=== PATIENT | male | born 1975 | race Two or more races ===

== ENCOUNTER 2020-11-06 07:51 | Inpatient (IN) | payer OTHER ==
[~2020-11-06] VITALS: Ht 167.6 cm; Wt 87.5 kg
--- NOTE | 2020-11-06 07:51 | NUR ---
PT BIBRA FROM HOME C/O NAUSEA/VOMITING AND BLACK TARRY STOOL FOR 2 DAYS. PT IS AAOX4, NOT IN RESPIRATORY DISTRESS, HOOKED TO TAPE CALENDER, KEPT RESTED AND COMFORTABLE. WILL CONTINUE TO MONITOR.
--- NOTE | 2020-11-06 08:03 | NUR ---
SEEN AND EXAMINED BY .
--- NOTE | 2020-11-06 08:05 | NUR ---
IV LINE ESTABLISHED BLOOD DRAWN AND SENT TO LAB.
[2020-11-06] MEDS ORDERED: FAMOTIDINE/PF INJ 20 MG/2 ML VIAL IV ONE (08:07)
[2020-11-06] MEDS ORDERED: ONDANSETRON HCL/PF 4 MG/2 ML VIAL ONE (08:07)
[2020-11-06 08:19] LABS: BASOPHILS # (AUTO) 0.1 /CMM (0.0-0.2); BASOPHILS % (AUTO) 0.6 % (0.0-2.0); EOSINOPHILS % (AUTO) 1.3 % (0.0-6.0); HEMATOCRIT 34 % (39-51); HEMOGLOBIN 11.6 g/dL (13.5-17.5); MEAN CORPUSCULAR HGB CONC 34 g/dl (31.0-36.0); MEAN CORPUSCULAR VOLUME 102 fL (80-96); MONOCYTES # (AUTO) 1.9 /CMM (0.1-1.30); NEUTROPHILS # (AUTO) 13.6 /CMM (1.8-8.9); NEUTROPHILS % (AUTO) 72.1 % (43.0-81.0); PLATELET COUNT (AUTO) 127 /CMM (150-450); RED BLOOD CELL COUNT(AUTO) 3.33 MIL/uL (4.5-6.0); WHITE BLOOD COUNT (AUTO) 18.9 K/uL (4.3-11.0)
--- NOTE | 2020-11-06 08:25 | NUR ---
PRODUCT MARKETING ENGINEER AT BEDSIDE FOR XRAY.
[2020-11-06] MEDS ORDERED: FAMOTIDINE/PF INJ 40 MG in IV D5W 50 ML IV ONE (08:30)
[2020-11-06] MEDS ORDERED: ONDANSETRON HCL/PF 4 MG/2 ML VIAL IVP ONE (08:30)
[2020-11-06] MEDS ORDERED: IV NS 0.9% 500 ML BAG IV ONE (08:30)
[2020-11-06 08:31] LABS: CALCIUM, SERUM 8.7 mg/dL (8.5-10.1); POTASSIUM 3.8 mmol/L (3.5-5.1)
[2020-11-06 08:37] LABS: ALBUMIN 3.1 g/dL (3.4-5.0); BILIRUBIN,DIRECT 1.3 mg/dL (0.0-0.2); TOTAL PROTEIN, SERUM 7.1 g/dL (6.4-8.2)
--- NOTE | 2020-11-06 10:22 | NUR ---
ROOM GIVEN 325-2
--- NOTE | 2020-11-06 10:26 | NUR ---
REPORT GIVEN TO NURSE NADJA ROBLES.
[2020-11-06 10:45] VITALS: BP 142/73
--- NOTE | 2020-11-06 10:45 | NUR ---
m/s cylinder worker: admission admitted this 45 year old male pt from [facility] with dx: gi bleed. pt awake, a/ox4, ambulatory. pt voided and had a small black form tarry stool. oriented to room and surroundings. kept pt npo, awaiting for raven nguyen (tubular riveter) to evaluate and admit the pt. vss. instructed to call for assistance. will continue to monitor.
[2020-11-06] MEDS ORDERED: ZOLPIDEM TARTRATE 5 MG TABLET PO PRN (11:30)
[2020-11-06] MEDS ORDERED: ONDANSETRON HCL/PF 4 MG/2 ML VIAL IVP PRN (11:30)
[2020-11-06] MEDS ORDERED: MORPHINE SULFATE INJ 2 MG/ML DISP.SYRIN IV PRN (11:30)
[2020-11-06] MEDS ORDERED: HYDROCODONE/APAP 5/325MG TABLET PO PRN (11:30)
--- NOTE | 2020-11-06 11:30 | NUR ---
m/s water taxi captain: notes sounds asleep at this time. no distress noted.
--- NOTE | 2020-11-06 14:25 | NUR ---
m/s superintendent meter tests: notes pt had episode of black tarry stool. raven nguyen notified and made aware. per raven, gi will not do anything today with order to start him on clear liquid diet. order carried out.
--- NOTE | 2020-11-06 15:00 | NUR ---
m/s educational programming director: notes started him on clear liquid diet. still awaiting for gi to see pt. no distress noted. instructed to call for assistance.
--- NOTE | 2020-11-06 15:52 | NUR ---
m/s assistant professor of german: notes pt says he had another black tarry stool, but he flushed the toilet without nurse seeing it after he had the clear liquid diet. pt denies n/v. will continue to monitor.
[2020-11-06 15:54] VITALS: BP 125/63
--- NOTE | 2020-11-06 16:15 | NUR ---
m/s distribution center supervisor: notes brother visiting at this time.
--- NOTE | 2020-11-06 16:30 | NUR ---
m/s gps navigation installer: notes pt had small amount of black tarry stool. raven (concaver) notified and made aware.
[2020-11-06] MEDS: PANTOPRAZOLE 40 MG VIAL IV SCH (16:46)
--- NOTE | 2020-11-06 18:00 | NUR ---
m/s ornamenter: notes girlfriend visiting at this time. pt resting comfortable. pt had another episode of small black tarry stool. needs attended. instructed to call for assistance. will continue to monitor.
--- NOTE | 2020-11-06 19:10 | NUR ---
MS RN OPENING NOTES: RECEIVED PATIENT IN BED, AWAKE, A/O X4. NO S/S OF DISTRESS NOTED. CALL LIGHT WITHIN REACH. BED IN LOWEST AND LOCKED POSITION. STILL HAVING BLACK TARRY STOOL TODAY. INSTRUCTED PATIENT FOR STOOL COLLECTION FOR NEXT BM, PATIENT VERBALIZED UNDERSTANDING.AMBULATORY. STILL WAITING FOR THE GI CONSULT TO SEE THE PATIENT.
--- NOTE | 2020-11-06 19:15 | NUR ---
m/s ceo and president: notes report given to ibrahima (rn) for continuity of care.
[2020-11-06 20:00] VITALS: BP 138/91
--- NOTE | 2020-11-07 05:48 | NUR ---
MS RN CLOSING NOTES: PATIENT IN BED, AWAKE. A/O X4. NO S/S OF DISTRESS NOTED. NO BLEEDING NOTED. CALL LIGHT WITHIN REACH. BED IN LOWEST AND LOCKED POSITION. AMBULATORY. BRP. NO BM DURING THE SHIFT. VOIDED 4X. REMINDED PATIENT RE: STOOL COLLECTION FOR STOOL OB, VERBALIZED UNDERSTANDING. NO COMPLAIN OF NAUSEA AND VOMITTING DURING THE SHIFT.
[2020-11-07 06:23] LABS: BASOPHILS # (AUTO) 0.1 /CMM (0.0-0.2); EOSINOPHILS % (AUTO) 2.2 % (0.0-6.0); HEMATOCRIT 27 % (39-51); HEMOGLOBIN 9.1 g/dL (13.5-17.5); LYMPHOCYTES # (AUTO) 1.7 /CMM (0.8-4.8); LYMPHOCYTES % (AUTO) 19.2 % (20.0-44.0); MEAN CORPUSCULAR HGB CONC 34 g/dl (31.0-36.0); MEAN CORPUSCULAR VOLUME 105 fL (80-96); MONOCYTES # (AUTO) 0.9 /CMM (0.1-1.30); MONOCYTES % (AUTO) 9.9 % (2.0-12.0); NEUTROPHILS # (AUTO) 6.1 /CMM (1.8-8.9); NEUTROPHILS % (AUTO) 67.7 % (43.0-81.0); PLATELET COUNT (AUTO) 57 /CMM (150-450); RED BLOOD CELL COUNT(AUTO) 2.54 MIL/uL (4.5-6.0); WHITE BLOOD COUNT (AUTO) 8.9 K/uL (4.3-11.0)
[2020-11-07 06:59] LABS: ALBUMIN 2.6 g/dL (3.4-5.0); BILIRUBIN,DIRECT 1.1 mg/dL (0.0-0.2); BILIRUBIN,TOTAL 2.6 mg/dL (0.2-1.0); CALCIUM, SERUM 8.1 mg/dL (8.5-10.1); POTASSIUM 3.8 mmol/L (3.5-5.1)
[2020-11-07 08:00] VITALS: BP 119/73
--- NOTE | 2020-11-07 08:00 | NUR ---
MS RN OPENING NOTES RECEIVED PATIENT LYING IN BED, RESTING. EASY TO AROUSE. A/O X4. PATIENT STATED HE HAD STOOL FOR COLLECTION - WILL COLLECT AND CARRY OUT. PENDING GI CONSULT. SAFETY PRECAUTIONS IN PLACE. CALL LIGHT WITHIN REACH. WILL CONTINUE TO MONITOR.
[2020-11-07] MEDS: THIAMINE HCL 100 MG TABLET PO SCH (08:18)
[2020-11-07] MEDS: FOLIC ACID 1 MG TABLET PO SCH (08:18)
[2020-11-07] MEDS: PANTOPRAZOLE 40 MG VIAL IV SCH ×2 (08:18→17:09)
[2020-11-07 08:45] LABS: EOSINOPHILS % (MANUAL) 1 % (0-4); LYMPHOCYTES % (MANUAL) 19 % (16-48); MONOCYTES % (MANUAL) 2 % (0-11.0); NEUTROPHILS % (MANUAL) 78 (42-76)
[2020-11-07] MEDS ORDERED: IOHEXOL-350 100 ML VIAL IV ONE ×2 (08:55→09:35)
[2020-11-07] MEDS ORDERED: IV NS 0.9% 250 ML IV ONE ×2 (08:56→09:35)
[2020-11-07 08:57] LABS: MAGNESIUM 1.8 mg/dL (1.8-2.4)
[2020-11-07] MEDS ORDERED: ANESTHESIA TRAY IN PYXIS 1 EA TRAY MC ONE (11:48)
[2020-11-07 15:47] VITALS: BP 129/68
--- NOTE | 2020-11-07 18:32 | NUR ---
MS RN CLOSING NOTES PATIENT CURRENTLY IN BED, AWAKE. A/O X4. NO S/S OF DISTRESS NOTED. NO PAIN NOTED. AMBULATORY. STOOL OB COLLECTED. PATIENT TO BE NPO @ MIDNIGHT FOR EGD IN THE AM. IV ACCESS TO LEFT AC - INTACT AND PATENT. SAFETY PRECAUTIONS MAINTAINED. CALL LIGHT WITHIN REACH. WILL ENDORSE TO REGULATOR MECHANIC NURSE FOR TRAVIS.
--- NOTE | 2020-11-07 19:05 | NUR ---
MS RN OPENING NOTES: RECEIVED PATIENT IN BED, AWAKE, A/O X4. NO S/S OF DISTRESS NOTED. CALL LIGHT WITHIN REACH. BED IN LOWEST AND LOCKED POSITION. NPO POST MN, INSTRUCTED PATIENT, VERBALIZED UNDERSTANDING. ELICIA COREY MADE AWARE.
[2020-11-07 20:00] VITALS: BP 139/77
[2020-11-08] VITALS (9 sets, daily range): BP systolic 110–132; BP diastolic 49–74
[2020-11-08 06:46] LABS: BASOPHILS # (AUTO) 0.1 /CMM (0.0-0.2); BASOPHILS % (AUTO) 1.1 % (0.0-2.0); EOSINOPHILS % (AUTO) 3.5 % (0.0-6.0); HEMATOCRIT 24 % (39-51); HEMOGLOBIN 8.2 g/dL (13.5-17.5); LYMPHOCYTES # (AUTO) 0.9 /CMM (0.8-4.8); LYMPHOCYTES % (AUTO) 19.2 % (20.0-44.0); MEAN CORPUSCULAR HGB CONC 35 g/dl (31.0-36.0); MEAN CORPUSCULAR VOLUME 105 fL (80-96); MONOCYTES # (AUTO) 0.5 /CMM (0.1-1.30); NEUTROPHILS # (AUTO) 3.1 /CMM (1.8-8.9); NEUTROPHILS % (AUTO) 65.2 % (43.0-81.0); RED BLOOD CELL COUNT(AUTO) 2.24 MIL/uL (4.5-6.0); WHITE BLOOD COUNT (AUTO) 4.8 K/uL (4.3-11.0)
[2020-11-08 06:57] LABS: PLATELET COUNT (AUTO) 45 /CMM (150-450)
--- NOTE | 2020-11-08 07:04 | NUR ---
INFORMED DR BLUE RE: PLATELET IS 45.
[2020-11-08 07:05] LABS: CALCIUM, SERUM 7.9 mg/dL (8.5-10.1); MAGNESIUM 1.7 mg/dL (1.8-2.4); PHOSPHORUS 4.2 mg/dL (2.5-4.9); POTASSIUM 3.7 mmol/L (3.5-5.1)
--- NOTE | 2020-11-08 08:05 | NUR ---
ms rn received patient awake,alert x4, respirations even and unlabored,no sob noted,lungs are clear,abdomen soft, positive bowel sounds,denies pain at this time,all needs attended.
[2020-11-08] MEDS: THIAMINE HCL 100 MG TABLET PO SCH (09:00)
[2020-11-08] MEDS: FOLIC ACID 1 MG TABLET PO SCH (09:00)
--- NOTE | 2020-11-08 09:00 | NUR ---
ms rn patient asking what's the plan for today, so we texted dr. masterson and was advise to call jen, finally aleksander crocker came and called jen for schedule of egd.
[2020-11-08] MEDS: PANTOPRAZOLE 40 MG VIAL IV SCH ×2 (09:50→17:34)
[2020-11-08 10:19] LABS: EOSINOPHILS % (MANUAL) 5 % (0-4); LYMPHOCYTES % (MANUAL) 22 % (16-48); MONOCYTES % (MANUAL) 9 % (0-11.0); NEUTROPHILS % (MANUAL) 64 (42-76)
[2020-11-08] MEDS: Magnesium 1GM/D5W 100ML PREMIX 100 ML IV SCH ×2 (10:23→11:50)
--- NOTE | 2020-11-08 11:55 | NUR ---
MS RN OPENING NOTES PATIENT IN BED, ASLEEP BUT EASILY AROUSABLE. NO S/S OF PAIN OR DISCOMFORT NOTED AT THIS TIME. BREATHING EVEN AND NON-LABORED. IV NOTED ON LEFT AC, INTACT, NO S/S OF INFILTRATION NOTED. CALL LIGHT WITHIN EASY REACH.
--- NOTE | 2020-11-08 12:30 | NUR ---
MS RN PATIENT WENT DOWN,WELDER TOOL AND DIE BY OR STAFF FOR EGD PROCEDURE, ALL NEEDS ATTENDED.
[2020-11-08] MEDS ORDERED: ANESTHESIA TRAY IN PYXIS 1 EA TRAY MC ONE (13:04)
--- NOTE | 2020-11-08 14:32 | NUR ---
MS RN PATIENT CAME BACK FROM EGD UNDER GENERAL ANESTHESIA. AWAKE, ALERT, ORIENTED X4, ABLE TO MAKE NEEDS KNOWN, VERBALLY RESPONSIVE. DENIES PAIN OR DISCOMFORT AT THIS TIME. BREATHING EVEN AND NON LABORED. VITAL SIGN BP 130/73, HR 87, RR 18, TEMPERATURE 98, O2 SATURATION 98% ROOM AIR. IV SITE ON RIGHT FOREARM GAUGE # 22, INTACT, PATENT. ALL NEEDS ATTENDED PROMPTLY. CALL LIGHT WITHIN EASY REACH.
[2020-11-08] MEDS ORDERED: CEFTRIAXONE 1 G in IV D5W 50 ML IV SCH (15:00)
--- NOTE | 2020-11-08 18:00 | NUR ---
ms rn started on sandostatin/ octreotide iv at 25mcg/hr,no adverse reaction noted.
[2020-11-08] MEDS: OCTREOTIDE 1,250 MCG in IV NS 0.9% 247.5 ML IV PRN ×2 (18:17→21:13)
--- NOTE | 2020-11-08 18:55 | NUR ---
ms rn on bed, no distress noted,all needs attended.
--- NOTE | 2020-11-08 19:05 | NUR ---
MS RN OPENING NOTES: RECEIVED PATIENT IN BED, AWAKE. A/O X4. NO S/S OF DISTRESS NOTED. NO COMPLAIN OF PAIN. CALL LIGHT WITHIN REACH. BED IN LOWEST AND LOCKED POSITION. FAMILY AT THE BEDSIDE. WITH SANDOSTATIN DRIP AT 5ML/HOUR.
--- NOTE | 2020-11-09 06:00 | NUR ---
MS RN CLOSING NOTES: PATIENT IN BED, ASLEEP, EASILY AROUSABLE, CALL LIGHT WITHIN REACH. BED IN LOWEST AND LOCKED POSITION. NO COMPLAIN OF PAIN DURING THE SHIFT. RESTED THROUGHOUT THE NIGHT.
[2020-11-09 07:29] LABS: BASOPHILS # (AUTO) 0.1 /CMM (0.0-0.2); BASOPHILS % (AUTO) 0.8 % (0.0-2.0); EOSINOPHILS % (AUTO) 2.5 % (0.0-6.0); HEMATOCRIT 24 % (39-51); HEMOGLOBIN 8.2 g/dL (13.5-17.5); LYMPHOCYTES # (AUTO) 1.1 /CMM (0.8-4.8); LYMPHOCYTES % (AUTO) 15.4 % (20.0-44.0); MEAN CORPUSCULAR HGB CONC 34 g/dl (31.0-36.0); MEAN CORPUSCULAR VOLUME 105 fL (80-96); MONOCYTES # (AUTO) 0.7 /CMM (0.1-1.30); MONOCYTES % (AUTO) 10.7 % (2.0-12.0); NEUTROPHILS # (AUTO) 4.9 /CMM (1.8-8.9); NEUTROPHILS % (AUTO) 70.6 % (43.0-81.0); PLATELET COUNT (AUTO) 55 /CMM (150-450); RED BLOOD CELL COUNT(AUTO) 2.27 MIL/uL (4.5-6.0)
--- NOTE | 2020-11-09 07:30 | NUR ---
MS OPENING NOTE PATIENT SLEEPING IN BED, EASILY AWAKENED, A/O X 4. NO ACUTE DISTRESS OR SHORTNESS OF BREATH NOTED. PATIENT ABLE TO MAKE NEEDS KNOW. NO PAIN REPORTED AT THIS TIME. SAFETY PRECAUTIONS IN PLACE, BED LOCKED IN LOWEST POSITION AND CALL LIGHT WITHIN REACH. WILL CONTINUE TO MONITOR
[2020-11-09 08:00] VITALS: BP 121/70
[2020-11-09 08:00] LABS: CALCIUM, SERUM 7.4 mg/dL (8.5-10.1); CREATININE 0.9 mg/dL (0.6-1.3); MAGNESIUM 1.9 mg/dL (1.8-2.4); POTASSIUM 3.9 mmol/L (3.5-5.1)
[2020-11-09] MEDS: FOLIC ACID 1 MG TABLET PO SCH (09:07)
[2020-11-09] MEDS: PANTOPRAZOLE 40 MG VIAL IV SCH (09:07)
[2020-11-09] MEDS: THIAMINE HCL 100 MG TABLET PO SCH (09:07)
[2020-11-09] MEDS: OCTREOTIDE 1,250 MCG in IV NS 0.9% 247.5 ML IV PRN (09:45)
[2020-11-09] MEDS ORDERED: Folic Acid PO (12:12)
[2020-11-09] MEDS ORDERED: PANT40TA2 PO (12:12)
[2020-11-09] MEDS ORDERED: THIA100T88 PO (12:12)
--- NOTE | 2020-11-09 14:35 | NUR ---
MS CATALOGUE MAKER NOTE PATIENT DISCHARGED HOME, ALERT AND ORIENTED X 4, VITAL SIGNS STABLE. IV REMOVED AT BEDSIDE, NO BLEEDING NOTED. PATIENT'S SKIN INTACT. DISCHARGE INSTRUCTIONS GIVEN TO PATIENT, INCLUDING NEW PRESCRIPTIONS, PATIENT VERBALIZED UNDERSTANDING. PATIENT ASSISTED TO THE LOBBY VIA WHEELCHAIR. PATIENT PICKED UP VIA PRIVATE CAR BY BROTHER.
--- NOTE | 2020-11-09 15:52 | NUR ---
SS Note: SW attempted to meet with pt. for ETOH intervention and addiction resources. However, the pt. has already departed.
== END 2020-11-09 14:25 | disposition home or self-care (01) | DRG 432 ==
LOC: ER 07:57 → MED 10:27
PROVIDERS: ADMIT Nurse Practitioner Family; ATTEND Nurse Practitioner Acute Care
PROC: 06L38CZ Occlusion of Esophageal Vein with Extraluminal Device, Via Natural or Artificial Opening Endoscopic (ICD-10-PCS; principal; 2020-11-08)
DX: K70.31 Alcoholic cirrhosis of liver with ascites (principal); I85.11 Secondary esophageal varices with bleeding; E44.1 Mild protein-calorie malnutrition; E87.2 Acidosis; D62 Acute posthemorrhagic anemia; K76.6 Portal hypertension; F10.188 Alcohol abuse with other alcohol-induced disorder; D50.9 Iron deficiency anemia, unspecified; D72.829 Elevated white blood cell count, unspecified; K31.89 Other diseases of stomach and duodenum; E88.09 Other disorders of plasma-protein metabolism, not elsewhere classified; Z20.822 Contact with and (suspected) exposure to COVID-19; E80.6 Other disorders of bilirubin metabolism; Z68.31 Body mass index [BMI] 31.0-31.9, adult; D73.2 Chronic congestive splenomegaly; K63.89 Other specified diseases of intestine; D69.59 Other secondary thrombocytopenia
CPT/HCPCS: 36415; 71045-TC; 80048-TC; 80061-TC; 80076-TC; 83690-TC; 83735-TC; 84100-TC; 85025-TC; 85730-TC; 86850-TC; 87081-TC; C9113; C9803; G0378; J0330; J0696; J2354; J2405; J2704; J3475; J3490; J7030; J7050; J7060; Q9967